=== PATIENT | male | born 1965 | race Caucasian/White ===

== ENCOUNTER → 2020-01-31 | Outpatient (CLI) | payer BC ==
--- NOTE | 2020-01-31 11:35 | Diagnostic Imaging Report ---
PROCEDURE: MRI right joint lower extremity without contrast. TECHNIQUE: Multiplanar, multisequence non contrast-enhanced MRI of the right lower extremity was accomplished. INDICATION: Chronic right knee pain. COMPARISON: None FINDINGS: No acute fracture is seen in the right knee. Alignment appears normal. Joint spaces are preserved. There is a small right knee joint effusion. There is fissuring at the medial and lateral patellar cartilage. No large full-thickness cartilage defects are seen. The medial and lateral compartments demonstrate mild heterogeneity and surface irregularity with no large full-thickness defects. There is a radial tear at the posterior horn of the medial meniscus near the root. The lateral meniscus appears intact. The anterior and posterior cruciate ligaments are intact. The medial collateral ligament is intact. The lateral collateral ligamentous complex appears intact. The extensor mechanism is intact. The medial and lateral retinacula are intact. Soft tissues about the right knee demonstrate no acute abnormality. There is mild anterior subcutaneous edema. IMPRESSION: 1. Tear of the medial meniscus in the right knee posteriorly. 2. Mild chondromalacia patella. 3. Small right knee joint effusion. Dictated by: Dictated on workstation # [id number]
== END ==
LOC: RAD 09:50
PROVIDERS: ATTEND Nurse Practitioner
DX: S83.241A Other tear of medial meniscus, current injury, right knee, initial encounter (principal); X58.XXXA Exposure to other specified factors, initial encounter
CPT/HCPCS: 73721

== ENCOUNTER 2020-06-13 12:31 | Emergency (ER) | payer BC ==
[~2020-06-13] VITALS: Ht 187.9 cm; Wt 135.2 kg
[2020-06-13 13:27] VITALS: BP_SYST 137; BP_SYST 142; BP_SYST 148; BP_DIAS 89; BP_DIAS 94; BP_DIAS 95
[2020-06-13 13:27] LABS: BASOPHILS # (AUTO) 0.1 10^3/uL (0.0-0.1); BASOPHILS % (AUTO) 1 % (0-10); EOSINOPHILS # (AUTO) 0.3 10^3/uL (0.0-0.3); EOSINOPHILS % (AUTO) 6 % (0-10); HEMATOCRIT 46 % (40-54); HEMOGLOBIN 15.1 g/dL (13.3-17.7); LYMPHOCYTES # (AUTO) 1.7 10^3/uL (1.0-4.0); LYMPHOCYTES % (AUTO) 29 % (12-44); MEAN CORPUSCULAR HEMOGLOBIN 30 pg (25-34); MEAN CORPUSCULAR HGB CONC 33 g/dL (32-36); MEAN CORPUSCULAR VOLUME 90 fL (80-99); MONOCYTES # (AUTO) 0.4 10^3/uL (0.0-1.0); MONOCYTES % (AUTO) 7 % (0-12); NEUTROPHILS # (AUTO) 3.4 10^3/uL (1.8-7.8); NEUTROPHILS % (AUTO) 57 % (42-75); PLATELET COUNT 192 10^3/uL (130-400); WHITE BLOOD COUNT 5.9 10^3/uL (4.3-11.0)
[2020-06-13 13:34] LABS: ALBUMIN 4.3 GM/DL (3.2-4.5); CHLORIDE 104 MMOL/L (98-107); POTASSIUM 3.5 MMOL/L (3.6-5.0); SODIUM 139 MMOL/L (135-145)
[2020-06-13 13:36] LABS: CALCIUM 8.8 MG/DL (8.5-10.1)
[2020-06-13 13:37] LABS: GLUCOSE 121 MG/DL (70-105); TOTAL PROTEIN 7.2 GM/DL (6.4-8.2)
[2020-06-13 13:38] LABS: CARBON DIOXIDE 24 MMOL/L (21-32)
[2020-06-13 13:39] LABS: BILIRUBIN,TOTAL 0.5 MG/DL (0.1-1.0)
[2020-06-13 13:40] LABS: ALKALINE PHOSPHATASE 62 U/L (40-136); GFR ESTIMATED > 60
--- NOTE | 2020-06-13 13:40 | ED General ---
General Chief Complaint: Dizziness/Syncope Stated Complaint: LIGHTHEADED, DIZZINESS Nursing Triage Note: AMB TO ROOM REPORTS BEING DIZZY AND FELT TINGLING IN BOTH LEGS HAD NOT EATEN BREAKFAST. DENIES ANY CHEST PAIN. HAS HAD BOTH COVID VACCINE Nursing Sepsis Screen: No Definite Risk Source of Information: Patient Exam Limitations: No Limitations History of Present Illness Date Seen by Provider: Jun 13, 2020 Time Seen by Provider: 12:45 Initial Comments This 54-year-old gentleman presents to the emergency room with persistent lightheadedness that started this morning. He reports also having some tingling in his feet bilaterally associated with the lightheadedness. He denies any spinning or vertiginous sensations. He tried to eat thinking he might be hypoglycemic but that did not improve his symptoms. He still has some lightheadedness now but to a lesser degree. He was seen several months ago in [place] for a similar episode. He denies any chest pain or shortness of breath. He describes hyperlipidemia and seasonal allergies but no other major health problems. He sees Laureen Garcia for his primary care. He denies any drug, alcohol, or tobacco use. Allergies and Home Medications Allergies Coded Allergies: No Known Drug Allergies (Unverified , 06/13/20) Patient Home Medication List Home Medication List Reviewed: Yes Review of Systems Review of Systems Constitutional: no symptoms reported EENTM: no symptoms reported Respiratory: no symptoms reported Cardiovascular: see HPI Gastrointestinal: no symptoms reported Genitourinary: no symptoms reported Musculoskeletal: no symptoms reported Skin: no symptoms reported Psychiatric/Neurological: See HPI Hematologic/Lymphatic: No Symptoms Reported Immunological/Allergic: no symptoms reported Past Cwspopc-Egfajx-Tzfarj Hx Past Med/Social Hx: Reviewed Nursing Past Med/Soc Hx, Reviewed and Corrections made Patient Social History Alcohol Use: Occasionally Uses Smoking Status: Never a Smoker Recent Infectious Disease Expo: No Seasonal Allergies Seasonal Allergies: Yes Past Medical History Surgeries: Yes Orthopedic Cardiac: Yes High Cholesterol Neurological: No Genitourinary: No Gastrointestinal: No Musculoskeletal: No Endocrine: No HEENT: No Cancer: No Psychosocial: No Physical Exam Vital Signs Vital Signs - First Documented 06/13/20 12:40 Temp 36.7 Pulse 78 Resp 18 B/P (MAP) 152/85 (107) Pulse Ox 95 O2 Delivery Room Air Capillary Refill : Less Than 3 Seconds Height, Weight, BMI Height: '" Weight: lbs. oz. kg; 38.00 BMI Method: General Appearance: No Apparent Distress, WD/WN, Obese HEENT: PERRL/EOMI, Normal ENT Inspection Neck: Normal Inspection; No Carotid Bruit, No JVD Respiratory: Lungs Clear, Normal Breath Sounds, No Accessory Muscle Use Cardiovascular: Regular Rate, Rhythm, No Edema, No Murmur Gastrointestinal: Normal Bowel Sounds, Non Tender, Soft Extremity: Normal Inspection, No Pedal Edema Neurologic/Psychiatric: Alert, Oriented x3, No Motor/Sensory Deficits, Normal Mood/Affect, human resource intern II-XII Norm as Tested, Other (Normal hojpba-ha-ytwj and lynh-tu-lrhh) Skin: Normal Color, Warm/Dry Progress/Results/Core Measures Suspected Sepsis Recent Fever Within 48 Hours: No Infection Criteria Present: None New/Unexplained Altered Menta: No Sepsis Screen: No Definite Risk SIRS Temperature: Pulse: 81 Respiratory Rate: 18 Laboratory Tests 06/13/20 13:18: White Blood Count 5.9 Blood Pressure 137 /95 Mean: 109 Laboratory Tests 06/13/20 13:18: Creatinine 0.80, Platelet Count 192, Total Bilirubin 0.5 Results/Orders Lab Results Laboratory Tests Test 06/13/20 13:18 06/13/20 13:44 Range/Units White Blood Count 5.9 4.3-11.0 10^3/uL Red Blood Count 5.12 4.30-5.52 10^6/uL Hemoglobin 15.1 13.3-17.7 g/dL Hematocrit 46 40-54 % Mean Corpuscular Volume 90 80-99 fL Mean Corpuscular Hemoglobin 30 25-34 pg Mean Corpuscular Hemoglobin Concent 33 32-36 g/dL Red Cell Distribution Width 13.6 10.0-14.5 % Platelet Count 192 130-400 10^3/uL Mean Platelet Volume 11.0 9.0-12.2 fL Immature Granulocyte % (Auto) 1 % Neutrophils (%) (Auto) 57 42-75 % Lymphocytes (%) (Auto) 29 12-44 % Monocytes (%) (Auto) 7 0-12 % Eosinophils (%) (Auto) 6 0-10 % Basophils (%) (Auto) 1 0-10 % Neutrophils # (Auto) 3.4 1.8-7.8 10^3/uL Lymphocytes # (Auto) 1.7 1.0-4.0 10^3/uL Monocytes # (Auto) 0.4 0.0-1.0 10^3/uL Eosinophils # (Auto) 0.3 0.0-0.3 10^3/uL Basophils # (Auto) 0.1 0.0-0.1 10^3/uL Immature Granulocyte # (Auto) 0.1 0.0-0.1 10^3/uL Sodium Level 139 135-145 MMOL/L Potassium Level 3.5 L 3.6-5.0 MMOL/L Chloride Level 104 98-107 MMOL/L Carbon Dioxide Level 24 21-32 MMOL/L Anion Gap 11 5-14 MMOL/L Blood Urea Nitrogen 14 7-18 MG/DL Creatinine 0.80 0.60-1.30 MG/DL Estimat Glomerular Filtration Rate > 60 BUN/Creatinine Ratio 18 Glucose Level 121 H 70-105 MG/DL Calcium Level 8.8 8.5-10.1 MG/DL Corrected Calcium 8.6 8.5-10.1 MG/DL Magnesium Level 2.1 1.6-2.4 MG/DL Total Bilirubin 0.5 0.1-1.0 MG/DL Aspartate Amino Transf (AST/SGOT) 17 5-34 U/L Alanine Aminotransferase (ALT/SGPT) 26 0-55 U/L Alkaline Phosphatase 62 40-136 U/L Troponin I < 0.028 <0.028 NG/ML Total Protein 7.2 6.4-8.2 GM/DL Albumin 4.3 3.2-4.5 GM/DL Urine Color YELLOW Urine Clarity CLEAR Urine pH 6.0 5-9 Urine Specific [place] 1.025 H 1.016-1.022 Urine Protein NEGATIVE NEGATIVE Urine Glucose (UA) NEGATIVE NEGATIVE Urine Ketones NEGATIVE NEGATIVE Urine Nitrite NEGATIVE NEGATIVE Urine Bilirubin NEGATIVE NEGATIVE Urine Urobilinogen 1.0 < = 1.0 MG/DL Urine Leukocyte Esterase NEGATIVE NEGATIVE Urine RBC (Auto) NEGATIVE NEGATIVE Urine RBC NONE /HPF Urine WBC RARE /HPF Urine Squamous Epithelial Cells RARE /HPF Urine Crystals NONE /LPF Urine Bacteria NEGATIVE /HPF Urine Casts NONE /LPF Urine Mucus SMALL H /LPF Urine Culture Indicated NO My Orders Orders - PARI ONEAL MD Cbc With Automated Diff (06/13/20 12:55) Comprehensive Metabolic Panel (06/13/20 12:55) Magnesium (06/13/20 12:55) Troponin I (06/13/20 12:55) Ua Culture If Indicated (06/13/20 12:55) Ed Iv/Invasive Line Start (06/13/20 12:55) Ekg Tracing (06/13/20 12:55) Monitor-Rhythm Ecg Trace Only (06/13/20 12:55) Chest 1 View, Ap/Pa Only (06/13/20 12:55) Orthostatic Vital Signs (Adult (06/13/20 12:55) Us Carotid [place] Complete 28239 (06/13/20 12:55) Ns Iv 1000 Ml (Sodium Chloride 0.9%) (06/13/20 15:00) Vital Signs/I&O 06/13/20 06/13/20 06/13/20 12:40 13:27 15:53 Temp 36.7 Pulse 78 80 72 78 81 Resp 18 18 B/P (MAP) 152/85 (107) 148/89 (108) 134/92 142/94 (110) 137/95 (109) Pulse Ox 95 98 O2 Delivery Room Air Capillary Refill : Less Than 3 Seconds Blood Pressure Mean: 109 Progress Note #1: Time: 13:46 Progress Note Work-up is in progress. EKG is relatively unremarkable. Orthostatic vital signs are also unremarkable. Progress Note #2: Progress Note Work-up including carotid ultrasound was unremarkable. Patient was given a liter of IV fluid which did improve his lightheadedness. ECG Initial ECG Impression Date: Jun 13, 2020 Initial ECG Impression Time: 13:22 Initial ECG Rate: 76 Initial ECG Rhythm: Normal Sinus Initial ECG Intervals: Normal Comment Sinus rhythm with no ST elevation or depression. Possible right bundle branch block. Probable LVH by automated read. Diagnostic Imaging Diagonstic Imaging: Xray Plain Films/CT/US/NM/MRI: chest Comments Chest x-ray viewed by me and report reviewed. See report below: NAME: ELKIN CHANDRA MED REC#: [id number] PT STATUS: REG ER : 1965 PHYSICIAN: PARI ONEAL MD ADMIT DATE: 06/13/20/ER Draft Date of Exam:06/13/20 CHEST 1 VIEW, AP/PA ONLY INDICATION: Dizziness with numbness and tingling in the feet. TIME OF EXAM: 1:42 PM. COMPARISON: No prior studies are available for comparison. FINDINGS: The heart size is normal. The pulmonary vascularity is unremarkable. The lungs are clear. No infiltrate, effusion, or pneumothorax is detected. IMPRESSION: No acute cardiopulmonary process is detected. Dictated on workstation # [id number] Dict: 06/13/20 1348 Trans: 06/13/20 1353 [id number] Interpreted by: KANDI AGUERO MD Diagonstic Imaging: Ultrasound Comments Carotid ultrasound discussed with the pc technician and report reviewed. See report below: NAME: ELKIN CHANDRA [facility] REC#: [id number] PT STATUS: DEP ER : 1965 PHYSICIAN: PARI ONEAL MD ADMIT DATE: 06/13/20/ER Draft Date of Exam:06/13/20 US CAROTID ARISTEO COMPLETE [id number] PROCEDURE: US carotid duplex, bilateral. TECHNIQUE: Multiple real-time grayscale images were obtained over the carotid arteries in various projections, bilaterally. Additional spectral analysis and color Doppler duplex images were also obtained. INDICATION: Dizziness. There is mild plaque in both carotid systems. The velocities are normal bilaterally. No velocity elevation or stenosis is seen. Both vertebral arteries show antegrade flow. IMPRESSION: Mild bilateral carotid plaque. There is no evidence of a hemodynamically significant stenosis. Parameters based on the consensus panel Lopez-Scale and Doppler ultrasound criteria published January 2003, Radiology, Volume 229. DOPPLER (peak systolic velocity M/S Right Left CCA 1.03 1.09 ICA Proximal 0.79 0.65 ICA Mid 0.66 0.70 ICA Distal 0.74 0.69 RATIO 0.77 0.64 ECA 1.52 1.13 VERT 0.31 0.45 Dictated on workstation # [id number] Dict: 06/13/20 1605 Trans: 06/13/20 1607 [facility] [id number] Interpreted by: KANDI AGUERO MD Departure Impression Primary Impression: Lightheadedness Disposition: 01 HOME, SELF-CARE Condition: Improved Departure-Patient Inst. Decision time for Depature: 15:43 Referrals: NO,LOCAL PHYSICIAN (PCP) Primary Care Physician KATE GARCIA (Family) Primary Care Physician Patient Instructions: Dizziness, Adult ED Add. Discharge Instructions: Drink plenty of clear liquids to stay well-hydrated. Follow-up with your primary care provider soon as possible. Discussed the possibility of a Holter monitor for further evaluation of your cardiac rhythms. Call with questions or concerns. Return to the emergency room if you have worsening symptoms. All discharge instructions reviewed with patient and/or family. Voiced understanding. PARI ONEAL MD Jun 13, 2020 13:40
[2020-06-13 13:41] LABS: BUN/CREATININE RATIO 18
[2020-06-13 13:43] LABS: ALANINE AMINOTRANSFERASE 26 U/L (0-55); MAGNESIUM 2.1 MG/DL (1.6-2.4)
[2020-06-13 13:53] LABS: BILIRUBIN,URINE NEGATIVE (NEGATIVE); CLARITY,URINE CLEAR; COLOR,URINE YELLOW; GLUCOSE, URINE (UA) NEGATIVE (NEGATIVE); KETONES,URINE NEGATIVE (NEGATIVE); LEUKOCYTE ESTERASE ,URINE NEGATIVE (NEGATIVE); NITRITE,URINE NEGATIVE (NEGATIVE); PROTEIN,URINE NEGATIVE (NEGATIVE)
--- NOTE | 2020-06-13 13:54 | Diagnostic Imaging Report ---
INDICATION: Dizziness with numbness and tingling in the feet. TIME OF EXAM: 1:42 PM. COMPARISON: No prior studies are available for comparison. FINDINGS: The heart size is normal. The pulmonary vascularity is unremarkable. The lungs are clear. No infiltrate, effusion, or pneumothorax is detected. IMPRESSION: No acute cardiopulmonary process is detected. Dictated by: Dictated on workstation # [id number]
[2020-06-13 14:00] LABS: BACTERIA,URINE NEGATIVE /HPF; SQUAMOUS EPITHELIAL CELL,UR RARE /HPF; WBC,URINE RARE /HPF
[2020-06-13] MEDS ORDERED: NS IV 1000 ML 1,000 ML IV SCH (15:00)
[2020-06-13 15:53] VITALS: BP 134/92
--- NOTE | 2020-06-13 16:07 | Diagnostic Imaging Report ---
PROCEDURE: US carotid duplex, bilateral. TECHNIQUE: Multiple real-time grayscale images were obtained over the carotid arteries in various projections, bilaterally. Additional spectral analysis and color Doppler duplex images were also obtained. INDICATION: Dizziness. There is mild plaque in both carotid systems. The velocities are normal bilaterally. No velocity elevation or stenosis is seen. Both vertebral arteries show antegrade flow. IMPRESSION: Mild bilateral carotid plaque. There is no evidence of a hemodynamically significant stenosis. Parameters based on the consensus panel Lopez-Scale and Doppler ultrasound criteria published January 2003, Radiology, Volume 229. DOPPLER (peak systolic velocity M/S Right Left CCA 1.03 1.09 ICA Proximal 0.79 0.65 ICA Mid 0.66 0.70 ICA Distal 0.74 0.69 RATIO 0.77 0.64 ECA 1.52 1.13 VERT 0.31 0.45 Dictated by: Dictated on workstation # [id number]
== END 2020-06-13 15:53 | disposition home or self-care (01) ==
LOC: EDUNIT# 12:31 → ER 12:33
DX: R42 Dizziness and giddiness (principal); E66.9 Obesity, unspecified; Z68.38 Body mass index [BMI] 38.0-38.9, adult
CPT/HCPCS: 36415; 71045; 80053; 81000; 83735; 84484; 85025; 93005; 93880; 96360